=== PATIENT | female | born 1965 | race Caucasian/White ===

== ENCOUNTER 2019-09-08 08:08 | Day surgery (SDC) | payer BC, OTHER ==
[2019-09-05 17:19] VITALS: BMI 22.6
[2019-09-08 08:38] VITALS: TEMP 98.8
[2019-09-08] MEDS ORDERED: PROPOFOL 20 ML ONE ×3 (09:20)
[2019-09-08 10:11] VITALS: BP 117/60; PULSE 69
--- NOTE | 2019-09-09 17:03 | PATH ---
Surgical Pathology Report Patient Name: VIN TERRELL [facility]. Rec. #: [id number] /Age/Gender: 1965 (Age: 54) / F Account: [id number] Location: [facility] Taken: 09/08/2019 Received: 09/08/2019 Reported: 09/09/2019 Physicians: Jose Miller M.D. Specimen(s) Received DISTAL RIGHT COLON Clinical History Screening Postoperative diagnosis: Colon polyp Final Diagnosis DISTAL COLON, RIGHT, POLYPECTOMY: TUBULAR ADENOMA. Electronically Signed Ashley Lazaro M.D. Gross Description Received in formalin, labeled "polypectomy right colon distal" are 2 jaramillo, irregular portions of soft tissue measuring 0.6 and 0.8 cm. in greatest dimension. The specimens are submitted in toto in one cassette. DL/09/08/2019 saudi09/08/2019
== END 2019-09-08 10:15 | disposition home or self-care (01) ==
LOC: FASU-ENDO 08:08
PROVIDERS: ATTEND Internal Medicine Gastroenterology
PROC: 3E0H8GC Introduction of Other Therapeutic Substance into Lower GI, Via Natural or Artificial Opening Endoscopic (ICD-10-PCS; 2019-09-08)
PROC: 0DBM8ZX Excision of Descending Colon, Via Natural or Artificial Opening Endoscopic, Diagnostic (ICD-10-PCS; principal; 2019-09-08 09:10)
DX: Z12.11 Encounter for screening for malignant neoplasm of colon (principal); D12.2 Benign neoplasm of ascending colon
CPT/HCPCS: 81025; 88305-TC